=== PATIENT | male | born 1975 ===

== ENCOUNTER 2017-09-10 06:43 | Day surgery (SDC) | payer BC ==
[~2017-09-10 06:43] MED LIST: Lactated Ringer's 1,000 ML IV ONE
[2017-09-10 06:49] VITALS: BMI 42.6
[2017-09-10] MEDS ORDERED: Lidocaine 2% Inj (20ml) ONE (07:17)
[2017-09-10 07:37] LABS: HEMOGLOBIN 16.6 g/dL (12.0-18.0); MEAN CORPUSCULAR HEMOGLOBIN 27.9 pg (27.0-31.0); RBC 5.96 Mil/uL (4.40-5.90); RED CELL DISTRIBUTION WIDTH 13.5 % (11.5-14.5)
[2017-09-10 07:40] LABS: ALB/GLOB RATIO 1.1 (1.0-2.1); ALBUMIN 4.2 g/dL (3.5-5.0); ALT/SGPT 69 U/L (21-72); AST/SGOT 51 U/L (17-59); BLOOD UREA NITROGEN 18 mg/dl (9-20); GFR AFRICAN-AMERICAN > 60; GFR NON-AFRICAN AMERICAN > 60
[2017-09-10 07:42] LABS: PARTIAL THROMBOPLASTIN TIME 38.6 Seconds (25.6-37.1); PROTHROMBIN TIME 11.2 Seconds (9.8-13.1)
[2017-09-10] MEDS ORDERED: Propofol 10 mg/ml Inj (20 ML) ONE (08:00)
[2017-09-10] MEDS ORDERED: Midazolam 2 MG/2 ML VIAL ONE (08:00)
[2017-09-10] MEDS ORDERED: Lidocaine 2% Jelly (5 ml) TOP ONE (08:19)
[2017-09-10] MEDS ORDERED: cefTRIAXone (Rocephin) 1 gm Inj ONE (08:51)
[2017-09-10] MEDS ORDERED: Lidocaine 2% Inj (20ml) IJ ONE ×2 (09:10→09:21)
[2017-09-10] MEDS ORDERED: Lactated Ringer's 1,000 ML IV SCH (09:45)
[2017-09-10] MEDS: HYDROmorphone 0.5 mg/0.5 ml ISec IVP PRN ×4 (09:59→10:43)
--- NOTE | 2017-09-10 10:12 | OP ---
PROCEDURE DATE: 09/10/2017 SURGEON: Lesley Harrnigton MD ANESTHESIOLOGIST: Silver Stone MD ANESTHESIA: General anesthesia PREOPERATIVE DIAGNOSIS: Phimosis with recurrent balanitis. POSTOPERATIVE DIAGNOSIS: Phimosis with recurrent balanitis. PROCEDURE PERFORMED: Circumcision under general anesthesia. DESCRIPTION OF PROCEDURE: The patient placed in the operating table in the supine position. The area of the groin was draped and prepped in a sterile manner. Using circumferential scalpel incision, I removed the redundant foreskin. There was some bleeding noted in the removed skin and then I cauterized that. He did have frenular adhesion, which was lysed free and at this time then the skin edges were approximated with 4-0 chromic sutures. At the end of the suturing then compressive Coban dressing was placed over the wound site and I estimated blood loss to be less than 5 mL. POSTOPERATIVE CONDITION: The patient was taken from the operating room in good condition. Lesley Harrington MD [id number]
[2017-09-10 14:54] VITALS: BP 121/82; PULSE 60; RESP 18; TEMP 97.7; O2SAT 95
== END 2017-09-10 12:50 | disposition home or self-care (01) ==
LOC: H.OPSURG 06:43
PROVIDERS: ATTEND Urology
DX: N47.1 Phimosis (principal); N48.1 Balanitis; E66.01 Morbid (severe) obesity due to excess calories; Z87.891 Personal history of nicotine dependence
CPT/HCPCS: 36415; 54161; 80053; 85027; 85610; 85730; 88304; J0696; J1170; J1885; J2001; J2250; J2704; J2765; J3010; J7120